=== PATIENT | male | born 1960 | race Caucasian/White ===

== ENCOUNTER 2023-10-26 13:58 | Outpatient (CLI) | payer BC | END 2023-10-26 13:59 | disposition home or self-care (01) | LOC: CSHCT 13:58 | PROVIDERS: ATTEND Student in an Organized Health Care Education/Training Program | DX: Z12.2 Encounter for screening for malignant neoplasm of respiratory organs (principal); F17.210 Nicotine dependence, cigarettes, uncomplicated; M85.9 Disorder of bone density and structure, unspecified | CPT/HCPCS: 71271 ==